=== PATIENT | female | born 1980 | race Caucasian/White ===

== ENCOUNTER 2018-12-15 16:31 | Emergency (ER) | payer OTHER ==
[~2018-12-15] VITALS: Ht 162.5 cm; Wt 113.4 kg
== END 2018-12-15 18:26 | disposition home or self-care (01) ==
LOC: ED 16:31
DX: S66.323A Laceration of extensor muscle, fascia and tendon of left middle finger at wrist and hand level, initial encounter (principal); Z23 Encounter for immunization; W26.0XXA Contact with knife, initial encounter; Y93.89 Activity, other specified; Y92.89 Other specified places as the place of occurrence of the external cause; Y99.8 Other external cause status